=== PATIENT | female | born 1985 | race Two or more races ===

== ENCOUNTER 2023-11-04 09:52 | Inpatient (IN) | payer OTHER ==
[~2023-11-04] VITALS: Ht 162.6 cm; Wt 81.6 kg
[~2023-11-04 09:52] MED LIST: GAS RELIEF80 MG PO; OBSTETRIX DHA1 EAC1 PO; PEPCID AC20 MG; PERCOCET 5-3251 EACH PO; PRENA1 CHEW TA1.4 MG
[2023-11-04 10:31] VITALS: BP 102/63
[2023-11-04] MEDS ORDERED: MAGNESIUM SULFATE IN WATER 4 GM/100 ML PIGGYBACK IV ONE (11:42)
[2023-11-04] MEDS ORDERED: MAGNESIUM SULFATE IN WATER 0.04 GM/ML IV.SOLN IV ONE (11:43)
[2023-11-04 12:03] LABS: HEMATOCRIT 35.2 % (36.0-45.00); HEMOGLOBIN 11.7 g/dL (12.0-15.00); MEAN CELL VOLUME 87.7 fL (80.00-100.00); MEAN CORPUSCULAR HGB CONC 33.1 g/dl (32.0-36.0); PLATELET COUNT 324 K/uL (150-450); RED BLOOD COUNT 4.02 M/uL (4.00-6.00); RED CELL DISTRIBUTION WIDTH 14.6 % (11.5-14.5)
[2023-11-04 12:24] LABS: INR 0.94; PARTIAL THROMBOPLASTIN TIME 29.1 SECONDS (22.0-34.0); PROTHROMBIN TIME 10.3 SECONDS (9.0-11.5)
[2023-11-04 12:30] VITALS: BP 110/70
[2023-11-04 12:43] LABS: ALBUMIN 2.9 gm/dL (3.4-5.0); BILIRUBIN TOTAL 0.4 mg/dL (0.3-1.2); CALCIUM 9.2 mg/dL (8.5-10.1); CREATININE SERUM 0.41 mg/dL (0.55-1.02); GFR 173.61; GLOBULINA 3.6 G/DL (2.4-3.5); POTASSIUM 4.09 mEq/L (3.5-5.1); TOTAL PROTEIN 6.5 gm/dL (6.4-8.2)
[2023-11-04] MEDS ORDERED: MAGNESIUM SULFATE IN WATER 50 ML IV SCH (13:45)
[2023-11-04] MEDS ORDERED: MORPHINE SULFATE 4 MG/ML VIAL IV PRN (13:45)
[2023-11-04] MEDS ORDERED: RINGERS SOLUTION,LACTATED 1,000 ML IV SCH (13:45)
[2023-11-04] MEDS ORDERED: MAGNESIUM SULFATE IN WATER 100 ML IV ONE (13:45)
[2023-11-04] MEDS ORDERED: hydrOXYzine PAMOATE 50 MG CAPSULE PO NR (15:00)
[2023-11-04 15:59] VITALS: BP 102/64
[2023-11-04] MEDS ORDERED: ACETAMINOPHEN 500 MG GEL..CAP PO ONE (16:39)
[2023-11-04] MEDS ORDERED: ACETAMINOPHEN 500 MG GEL..CAP PO PRN (16:45)
[2023-11-04 20:00] VITALS: BP 107/70
[2023-11-04 23:35] VITALS: BP 102/68
[2023-11-05 04:00] VITALS: BP 108/69
[2023-11-05 06:34] VITALS: BP 116/71; O2SAT 97
[2023-11-05 11:44] VITALS: BP 1013/67; O2SAT 98
[2023-11-05] MEDS ORDERED: AMPICILLIN SODIUM 2,000 MG VIAL IV ONE (13:15)
[2023-11-05] MEDS ORDERED: BETAMETHASONE ACETATE,SOD PHOS 30 MG/5 ML ML IM ONE (13:15)
[2023-11-05] MEDS ORDERED: BETAMETHASONE ACETATE,SOD PHOS 30 MG/5 ML ML ONE (13:46)
[2023-11-05 16:47] VITALS: BP 123/62
[2023-11-05] MEDS ORDERED: AMPICILLIN SODIUM 1,000 MG VIAL IV SCH (17:00)
== END 2023-11-05 16:28 | disposition designated cancer center or children's hospital (05) | DRG 833 ==
LOC: LDR 09:52
PROVIDERS: ADMIT Obstetrics & Gynecology; ATTEND Obstetrics & Gynecology
PROC: 4A1HXCZ Monitoring of Products of Conception, Cardiac Rate, External Approach (ICD-10-PCS; principal; 2023-11-04)
PROC: BY4CZZZ Ultrasonography of Second Trimester, Single Fetus (ICD-10-PCS; 2023-11-05)
PROC: BU4CZZZ Ultrasonography of Uterus and Ovaries (ICD-10-PCS; 2023-11-05)
DX: O60.02 Preterm labor without delivery, second trimester (principal); O26.842 Uterine size-date discrepancy, second trimester; O34.12 Maternal care for benign tumor of corpus uteri, second trimester; D25.9 Leiomyoma of uterus, unspecified; Z3A.23 23 weeks gestation of pregnancy; Z20.822 Contact with and (suspected) exposure to COVID-19

== ENCOUNTER 2023-11-18 08:07 | Outpatient (CLI) | payer OTHER | END 2023-11-18 08:51 | disposition home or self-care (01) | LOC: NST 08:07 | PROVIDERS: ATTEND Obstetrics & Gynecology Maternal & Fetal Medicine | DX: Z34.82 Encounter for supervision of other normal pregnancy, second trimester (principal) ==

== ENCOUNTER 2023-12-16 15:37 | Outpatient (CLI) | payer OTHER | END 2023-12-16 17:15 | disposition home or self-care (01) | LOC: NST 15:37 | PROVIDERS: ATTEND Obstetrics & Gynecology Maternal & Fetal Medicine | DX: Z34.83 Encounter for supervision of other normal pregnancy, third trimester (principal) ==

== ENCOUNTER 2023-12-31 09:21 | Outpatient (CLI) | payer OTHER | END 2023-12-31 10:18 | disposition home or self-care (01) | LOC: NST 09:21 | PROVIDERS: ATTEND Obstetrics & Gynecology Maternal & Fetal Medicine | DX: Z34.83 Encounter for supervision of other normal pregnancy, third trimester (principal) ==

== ENCOUNTER 2024-01-14 07:30 | Outpatient (CLI) | payer OTHER | END 2024-01-14 08:20 | disposition home or self-care (01) | LOC: NST 07:30 | PROVIDERS: ATTEND Obstetrics & Gynecology Maternal & Fetal Medicine | DX: Z34.83 Encounter for supervision of other normal pregnancy, third trimester (principal) ==

== ENCOUNTER → 2024-01-25 | Outpatient (CLI) | payer OTHER | END | disposition home or self-care (01) | LOC: NST 14:01 | PROVIDERS: ATTEND Obstetrics & Gynecology Maternal & Fetal Medicine | DX: Z34.83 Encounter for supervision of other normal pregnancy, third trimester (principal) ==

== ENCOUNTER 2024-01-30 13:59 | Inpatient (IN) | payer OTHER ==
[~2024-01-30] VITALS: Ht 162.6 cm; Wt 2.3 kg
[2024-01-30 12:52] VITALS: BP 120/79
[2024-01-30] MEDS ORDERED: MAGNESIUM SULFATE IN WATER 4 GM/100 ML PIGGYBACK IV STA (14:07)
[2024-01-30] MEDS ORDERED: RINGERS SOLUTION,LACTATED 1,000 ML IV SCH (14:15)
[2024-01-30] MEDS ORDERED: MAGNESIUM SULFATE IN WATER 500 ML IV SCH (14:15)
[2024-01-30 15:20] VITALS: BP 142/79
[2024-01-30] MEDS ORDERED: BETAMETHASONE ACETATE,SOD PHOS 30 MG/5 ML ML IM STA (15:23)
[2024-01-30 15:38] LABS: HEMATOCRIT 34.6 % (36.0-45.00); HEMOGLOBIN 11.3 g/dL (12.0-15.00); MEAN CELL VOLUME 83.9 fL (80.00-100.00); MEAN CORPUSCULAR HEMOGLOBIN 27.3 pg (27.00-32.0); MEAN CORPUSCULAR HGB CONC 32.5 g/dl (32.0-36.0); PLATELET COUNT 313 K/uL (150-450); RED BLOOD COUNT 4.13 M/uL (4.00-6.00); RED CELL DISTRIBUTION WIDTH 16.5 % (11.5-14.5)
[2024-01-30 16:00] LABS: INR < 0.93; PARTIAL THROMBOPLASTIN TIME 26.3 SECONDS (22.0-34.0); PROTHROMBIN TIME 10.2 SECONDS (9.0-11.5)
[2024-01-30 16:05] LABS: ALBUMIN 2.7 gm/dL (3.4-5.0); BILIRUBIN TOTAL 0.45 mg/dL (0.3-1.2); CALCIUM 8.9 mg/dL (8.5-10.1); CREATININE SERUM 0.47 mg/dL (0.55-1.02); GFR 148.3; GLOBULINA 3.6 G/DL (2.4-3.5); POTASSIUM 4.13 mEq/L (3.5-5.1); TOTAL PROTEIN 6.3 gm/dL (6.4-8.2)
[2024-01-30 23:08] VITALS: BP 120/71
[2024-01-30] MEDS ORDERED: ACETAMINOPHEN 500 MG GEL..CAP PO ONE (23:45)
[2024-01-31 03:50] VITALS: BP 105/66
[2024-01-31] MEDS ORDERED: ACETAMINOPHEN 500 MG GEL..CAP PO ONE (06:00)
[2024-01-31 06:43] VITALS: BP 114/72; O2SAT 99
[2024-01-31] MEDS ORDERED: CITRIC ACID/SODIUM CITRATE 30 ML BLIST.PACK PO STA (07:55)
[2024-01-31] MEDS ORDERED: CEFOXITIN SODIUM 2,000 MG VIAL IV STA (07:55)
[2024-01-31] MEDS ORDERED: OXYTOCIN 1,000 ML IV SCH (10:00)
[2024-01-31] MEDS ORDERED: GABAPENTIN 300 MG CAPSULE PO SCH (10:02)
[2024-01-31] MEDS ORDERED: PROMETHAZINE HCL 50 MG/ML AMPUL IM SCH (10:03)
[2024-01-31] MEDS ORDERED: MORPHINE SULFATE 4 MG/ML VIAL IV ONE ×2 (10:45→11:10)
[2024-01-31] MEDS ORDERED: OXYTOCIN 20 UNITS/1000ML RL PIGGYBAG IV ONE ×2 (11:45→18:15)
[2024-01-31] MEDS ORDERED: ACETAMINOPHEN 325 MG TABLET PO SCH (12:00)
[2024-01-31] MEDS ORDERED: MEPERIDINE HCL/PF 50 MG/ML VIAL IM SCH (13:00)
[2024-01-31] MEDS ORDERED: ACETAMINOPHEN 500 MG GEL..CAP PO SCH (13:00)
[2024-01-31 14:41] VITALS: BP 117/71
[2024-01-31 16:14] VITALS: BP 106/63
[2024-01-31] MEDS ORDERED: ERYTHROMYCIN BASE OPHT 1GM EACH TUBE OP ONE (18:15)
[2024-01-31] MEDS ORDERED: SIMETHICONE 125 MG CAPSULE PO SCH (21:16)
[2024-02-01 00:42] VITALS: BP 136/67
[2024-02-01 08:04] VITALS: BP 112/66
[2024-02-01 12:05] LABS: HEMATOCRIT 31.7 % (36.0-45.00); MEAN CELL VOLUME 83.5 fL (80.00-100.00); MEAN CORPUSCULAR HEMOGLOBIN 27.3 pg (27.00-32.0); MEAN CORPUSCULAR HGB CONC 32.7 g/dl (32.0-36.0); PLATELET COUNT 300 K/uL (150-450); RED CELL DISTRIBUTION WIDTH 17.2 % (11.5-14.5)
[2024-02-01 12:07] LABS: HEMOGLOBIN 10.4 g/dL (12.0-15.00)
[2024-02-01 16:58] VITALS: BP 103/64
[2024-02-02] VITALS: BP 126/78
[2024-02-02 07:51] VITALS: BP 120/79
[2024-02-02] MEDS ORDERED: ENOXAPARIN SODIUM 40 MG/0.4 ML SYRINGE SUBCUTANEO SCH (09:00)
[2024-02-02 16:20] VITALS: BP 127/61
[2024-02-03] VITALS: BP 114/73
[2024-02-03 08:15] VITALS: BP 124/79
[2024-02-03] MEDS ORDERED: FUROsemide 20 MG TABLET PO NR (10:30)
[2024-02-03 16:46] VITALS: BP 126/74
== END 2024-02-03 17:45 | disposition home or self-care (01) | DRG 783 ==
LOC: O/R 13:59 → LDR 13:59 → O/R 01-31 09:32 → OB/GYN 01-31 11:36
PROVIDERS: Obstetrics & Gynecology; ADMIT Obstetrics & Gynecology Maternal & Fetal Medicine; ATTEND Obstetrics & Gynecology Maternal & Fetal Medicine
PROC: 4A1HXCZ Monitoring of Products of Conception, Cardiac Rate, External Approach (ICD-10-PCS; 2024-01-30)
PROC: 0UB70ZZ Excision of Bilateral Fallopian Tubes, Open Approach (ICD-10-PCS; 2024-01-31)
PROC: 10D00Z1 Extraction of Products of Conception, Low, Open Approach (ICD-10-PCS; principal; 2024-01-31 10:30)
DX: O34.211 Maternal care for low transverse scar from previous cesarean delivery (principal); O60.14X0 Preterm labor third trimester with preterm delivery third trimester, not applicable or unspecified; Z30.2 Encounter for sterilization; Z3A.36 36 weeks gestation of pregnancy; Z37.0 Single live birth; Z20.822 Contact with and (suspected) exposure to COVID-19

== ENCOUNTER 2024-05-17 07:04 | Emergency (ER) | payer OTHER ==
[~2024-05-17] VITALS: Ht 162.6 cm; Wt 81.6 kg
[2024-05-17 07:32] VITALS: BP 108/74; O2SAT 96
[2024-05-17] MEDS ORDERED: FAMOTIDINE/PF 20 MG in 0.9 % SODIUM CHLORIDE 8 ML IV PUSH STA (08:08)
[2024-05-17] MEDS ORDERED: FAMOTIDINE/PF 20 MG/2 ML VIAL ONE (08:15)
[2024-05-17] MEDS ORDERED: DIPHENOXYLATE HCL/ATROPINE 1 UDTAB TABLET PO ONE (08:15)
[2024-05-17] MEDS ORDERED: 0.9 % SODIUM CHLORIDE 1,000 ML IV SCH (08:15)
[2024-05-17 08:43] LABS: HEMATOCRIT 44.1 % (36.0-45.00); HEMOGLOBIN 14.8 g/dL (12.0-15.00); MEAN CORPUSCULAR HEMOGLOBIN 27.5 pg (27.00-32.0); MEAN CORPUSCULAR HGB CONC 33.6 g/dl (32.0-36.0); PLATELET COUNT 332 K/uL (150-450); RED BLOOD COUNT 5.37 M/uL (4.00-6.00); RED CELL DISTRIBUTION WIDTH 16.1 % (11.5-14.5)
[2024-05-17] MEDS ORDERED: TUSNEL LIQUID178 ML PO (09:32)
[2024-05-17] MEDS ORDERED: OSEL75CA PO (09:32)
[2024-05-17] MEDS ORDERED: PEPCID AC20 MG PO (09:32)
[2024-05-17 09:34] LABS: ALBUMIN 4.2 gm/dL (3.4-5.0); BILIRUBIN TOTAL 0.43 mg/dL (0.3-1.2); CALCIUM 9.8 mg/dL (8.5-10.1); CREATININE SERUM 0.92 mg/dL (0.55-1.02); GFR 68.32; GLOBULINA 4.7 G/DL (2.4-3.5); POTASSIUM 3.97 mEq/L (3.5-5.1); TOTAL PROTEIN 8.9 gm/dL (6.4-8.2)
== END 2024-05-17 10:34 | disposition home or self-care (01) ==
LOC: ER 07:07
PROVIDERS: General Practice
DX: J10.1 Influenza due to other identified influenza virus with other respiratory manifestations (principal); Z20.822 Contact with and (suspected) exposure to COVID-19; Z88.6 Allergy status to analgesic agent; Z88.8 Allergy status to other drugs, medicaments and biological substances